=== PATIENT | female | born 1965 | race Caucasian/White ===

== ENCOUNTER 2020-03-05 06:37 | Outpatient (REF) | payer OTHER, SELFPAY | END 2020-03-05 06:38 | disposition home or self-care (01) | LOC: HO.LAB 06:37 | PROVIDERS: Visit Provider Internal Medicine | DX: Z20.828 Contact with and (suspected) exposure to other viral communicable diseases (principal) | CPT/HCPCS: 36415; C9803; U0003 ==

== ENCOUNTER 2023-01-19 13:01 | Outpatient (AMB) | payer OTHER, SELFPAY ==
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
[2023-01-19 13:18] VITALS: BP 114/75; PULSE 80; O2SAT 97; BMI 29.7
== END 2023-01-19 13:52 | disposition home or self-care (01) ==
PROVIDERS: PCP Internal Medicine; Referring Provider Internal Medicine; Visit Provider Nurse Practitioner Family
DX: M47.817 Spondylosis without myelopathy or radiculopathy, lumbosacral region (principal); M51.36 Other intervertebral disc degeneration, lumbar region; M53.3 Sacrococcygeal disorders, not elsewhere classified; M54.2 Cervicalgia; M62.830 Muscle spasm of back
CPT/HCPCS: 99204

== ENCOUNTER → 2023-01-19 13:01 | Outpatient (BNVA) | payer OTHER, SELFPAY | PROVIDERS: PCP Internal Medicine; Referring Provider Internal Medicine; Visit Provider Nurse Practitioner Family | DX: M47.817 Spondylosis without myelopathy or radiculopathy, lumbosacral region (principal); M51.36 Other intervertebral disc degeneration, lumbar region; M53.3 Sacrococcygeal disorders, not elsewhere classified; M54.2 Cervicalgia; M62.830 Muscle spasm of back | CPT/HCPCS: 99202 ==

== ENCOUNTER 2023-02-17 05:16 | Outpatient (REF) | payer OTHER, SELFPAY ==
--- NOTE | ~2023-02-17 | FL_ITS ---
EXAMINATION: XR FLUOROSCOPY WITH IMAGES CLINICAL INFORMATION: Spondylosis without myelopathy or radiculopathy, lumbosacral region. COMPARISON: None available. TECHNIQUE: Fluoroscopy Supervised By: Dr. Daniel Holly. Fluoroscopy Time: 0.5 minutes. Cumulative Dose: 6.87 mGy. DAP: 0.109 Gycm2. Images: 11. FINDINGS: Images demonstrate needle placement and contrast injection adjacent to the bilateral lateral L3, L4 and L5 vertebrae FL/FL guidance in treatment room IMPRESSION: Fluoroscopy guidance for pain management procedure.
== END 2023-02-17 05:17 | disposition home or self-care (01) ==
LOC: CF 05:16
PROVIDERS: Visit Provider Anesthesiology
DX: M47.817 Spondylosis without myelopathy or radiculopathy, lumbosacral region (principal); M51.36 Other intervertebral disc degeneration, lumbar region; M53.3 Sacrococcygeal disorders, not elsewhere classified; M54.2 Cervicalgia; M62.830 Muscle spasm of back
CPT/HCPCS: 64493; 64494; J2795; Q9967

== ENCOUNTER 2023-02-17 08:51 | Outpatient (AMB) | payer OTHER, SELFPAY ==
--- NOTE | 2023-02-17 09:18 | A.OFFVIS_ITS ---
Intake Vital Signs 02/17/23 09:58 02/17/23 09:58 Height 5 ft 7 in 5 ft 7 in Weight 189 lb 6 oz 189 lb 6 oz BMI 29.7 29.7 BP 98/58 L 102/60 Blood Pressure Location Lt brachial Lt brachial Position Sitting Sitting Respiration 14 14 Pulse 65 63 Pulse Source Pulse Oximeter Pulse Oximeter Pulse Oximetry (%) 96 96 Oxygen Delivery Method Room Air Room Air Comment pre-op post-op Intake Visit Reasons: BILAT L3-L4-L5 DX MBB/LOCAL Allergies No Known Allergies Allergy (Verified 02/17/23 10:00) [facility] Medical History (Updated 01/19/23 @ 22:34 by TREVON Beatty) Cervicalgia Other cervical disc degeneration, unspecified cervical region Carpal tunnel syndrome, right upper limb Pain in left finger(s) Muscle spasm of back Low back pain, unspecified Sciatica, right side Other intervertebral disc degeneration, lumbar region Other intervertebral disc degeneration, thoracic region Social History (Updated 01/19/23 @ 13:19 by Ching Angulo) Alcohol intake: current Alcohol intake frequency: holidays/special occasions only Patient Tobacco Use Status: Former Tobacco user Tobacco use type: Cigarette Substance Use Type: Marijuana Physical Exam Vital Signs: Last Vital Signs Pulse 63 02/17/23 09:58 Resp 14 02/17/23 09:58 BP 102/60 02/17/23 09:58 Pulse Ox 96 02/17/23 09:58 Oxygen Delivery Method Room Air 02/17/23 09:58 BMI result Body Mass Index 29.7 Assessment & Plan Assessment & Plan (1) Lumbosacral spondylosis: Code(s): M47.817 - Spondylosis without myelopathy or radiculopathy, lumbosacral region (2) Lumbar degenerative disc disease: Code(s): M51.36 - Other intervertebral disc degeneration, lumbar region (3) Sacroiliac joint pain: Code(s): M53.3 - Sacrococcygeal disorders, not elsewhere classified (4) Cervicalgia: Code(s): M54.2 - Cervicalgia (5) Muscle spasm of back: Code(s): M62.830 - Muscle spasm of back Plan: Diagnostic medial branch block L3,L4 dorsal ramus L5 bilateral.? ? ?Informed consent was explained to the patient. All questions were explained and? answered.? The patient was taken inside the operating room where she was positioned prone on the operating table. Time-out was performed delineating correct site, side, the nature of the procedure, patient's allergy, . All operating room staff was participating in OR time-out procedure. ? ? The lower back was prepped with ChloraPrep and draped with sterile towels.? C- arm was brought over the operating field and sq picture of L4-, L5 vertebra and S1 AREA were delineated on the screen.? Point of interest were delineated as confluence of superior articular process of L4 and L5 vertebra bilaterally with corresponding transverse processes as well as confluence of the sacral alae bilaterally with superior articular process of S1.? The projection of the point of interest to the skin were injected with the small amount of local anesthetic lidocaine 2% 1-1.5 cc.? After that 22 gauge 3.5 inch spinal needle was driven sequentially to the points of interest in tunnel vision fashion. After needles gently contacted the bone at the point of interests the needle was injected with small amount of the contrast.? The injection of the contrast did not demonstrate any intravascular or intrathecal spread of the contrast.? After that injection of the? ropivacaine 0.5%<1cc was performed at each needle location.??after that the needles were removed and Bandaids were applied. ? Upon completion of the injections? needle was? removed and sterile Band-Aids were applied.? The patient tolerated procedure very well. Plan Discussed treatment options for both her axial low back as well as chronic neck pain related to degenerative changes. Medical [place] [facility] [place] [facility] [place] previous cervical and lumbar spine MRIs and xrays. Patient is interested to address her back pain first. For ongoing axial low back pain will plan for diagnostic bilateral L3-L4-L5 medial branch blocks with local and fluoroscopy. If she has significant relief from the diagnostic blocks for her axial low back pain, will consider either therapeutic injections, Sprint PNS or RFA depending on her preference. If no relief, will consider left SIJ diagnostic injection. Expectations, risks and benefits were reviewed. Patient is aware he will be contacted to schedule this procedure. All questions were answered and the patient is in agreement of plan. Follow-up after injections and sooner as needed. Orders: Orders FL guidance in treatment room Today M47.817 - Spondylosis without myelopathy or radiculopathy, lumbosacral region Coding Level of Care Code Procedure Only Diagnoses Lumbosacral spondylosis M47.817 Lumbar degenerative disc disease M51.36 Sacroiliac joint pain M53.3 Cervicalgia M54.2 Muscle spasm of back M62.830
[2023-02-17 09:58] VITALS: BP 102/60; BP 98/58; PULSE 63; PULSE 65; RESP 14; O2SAT 96; BMI 29.7
== END 2023-02-17 09:42 | disposition home or self-care (01) ==
LOC: HO.PMCPRC 08:51
PROVIDERS: PCP Internal Medicine; Visit Provider Anesthesiology
DX: M47.817 Spondylosis without myelopathy or radiculopathy, lumbosacral region (principal)
CPT/HCPCS: 64493; 64494

== ENCOUNTER 2023-02-19 08:29 | Outpatient (AMB) | payer OTHER, SELFPAY ==
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
[2023-02-19 08:35] VITALS: BP 126/83; PULSE 91; O2SAT 98; BMI 28.2
== END 2023-02-19 09:08 | disposition home or self-care (01) ==
PROVIDERS: PCP Internal Medicine; Visit Provider Nurse Practitioner Family
DX: M47.817 Spondylosis without myelopathy or radiculopathy, lumbosacral region (principal); M51.36 Other intervertebral disc degeneration, lumbar region; M53.3 Sacrococcygeal disorders, not elsewhere classified; M62.830 Muscle spasm of back
CPT/HCPCS: 99214

== ENCOUNTER → 2023-02-19 08:29 | Outpatient (BNVA) | payer OTHER, SELFPAY | PROVIDERS: PCP Internal Medicine; Visit Provider Nurse Practitioner Family | DX: M47.817 Spondylosis without myelopathy or radiculopathy, lumbosacral region (principal); M51.36 Other intervertebral disc degeneration, lumbar region; M53.3 Sacrococcygeal disorders, not elsewhere classified; M62.830 Muscle spasm of back | CPT/HCPCS: 99212 ==

== ENCOUNTER 2023-03-17 06:17 | Outpatient (REF) | payer OTHER, SELFPAY ==
--- NOTE | ~2023-03-17 | FL_ITS ---
INDICATION: Intraoperative fluoroscopy. FLUOROSCOPY: Fluoroscopy Time: 40.6 seconds Dose/air kerma: 13.19 mGy FINDINGS: Multiple intraoperative fluoroscopic images are submitted during reported bilateral lumbar injections. Correlation with operative report. Evaluation is limited secondary to fluoroscopic technique. IMPRESSION: Intra-operative fluoroscopic imaging provided by radiology during reported bilateral lumbar injections. Please refer to operative note for further information.
== END 2023-03-17 06:18 | disposition home or self-care (01) ==
LOC: CF 06:17
PROVIDERS: Visit Provider Anesthesiology
DX: M47.817 Spondylosis without myelopathy or radiculopathy, lumbosacral region (principal); M51.36 Other intervertebral disc degeneration, lumbar region; M53.3 Sacrococcygeal disorders, not elsewhere classified; M62.830 Muscle spasm of back
CPT/HCPCS: 64493; 64494; J2795; J3301; Q9967

== ENCOUNTER 2023-03-17 14:41 | Outpatient (AMB) | payer OTHER, SELFPAY ==
--- NOTE | 2023-03-17 16:06 | MHC.OFFVIS ---
Intake Vital Signs 03/17/23 16:16 03/17/23 16:16 Height 5 ft 7 in 5 ft 7 in Weight 180 lb 180 lb BMI 28.2 28.2 BP 116/88 126/78 Blood Pressure Location Lt brachial Lt brachial Position Sitting Sitting Respiration 17 17 Pulse 81 62 Pulse Source Pulse Oximeter Pulse Oximeter Pulse Oximetry (%) 97 99 Oxygen Delivery Method Room Air Room Air Comment pre-op post-op Intake Visit Reasons: BILATERAL THERAPEUTIC L3, L4, DRL5 MBB Allergies No Known Allergies Allergy (Verified 03/17/23 16:17) [facility] Medical History Cervicalgia Other cervical disc degeneration, unspecified cervical region Carpal tunnel syndrome, right upper limb Pain in left finger(s) Muscle spasm of back Low back pain, unspecified Sciatica, right side Other intervertebral disc degeneration, lumbar region Other intervertebral disc degeneration, thoracic region Social History Alcohol intake: current Alcohol intake frequency: holidays/special occasions only Patient Tobacco Use Status: Former Tobacco user Tobacco use type: Cigarette Substance Use Type: Marijuana Physical Exam Vital Signs: Last Vital Signs Pulse 62 03/17/23 16:16 Resp 17 03/17/23 16:16 BP 126/78 03/17/23 16:16 Pulse Ox 99 03/17/23 16:16 Oxygen Delivery Method Room Air 03/17/23 16:16 BMI result Body Mass Index 28.2 Assessment & Plan Assessment & Plan (1) Lumbosacral spondylosis: Code(s): M47.817 - Spondylosis without myelopathy or radiculopathy, lumbosacral region (2) Lumbar degenerative disc disease: Code(s): M51.36 - Other intervertebral disc degeneration, lumbar region (3) Sacroiliac joint pain: Code(s): M53.3 - Sacrococcygeal disorders, not elsewhere classified (4) Muscle spasm of back: Code(s): M62.830 - Muscle spasm of back Plan: Therapeutic medial branch block L3,L4 dorsal ramus L5 bilateral.? ? ?Informed consent was explained to the patient. All questions were explained and? answered.? The patient was taken inside the operating room where she was positioned prone on the operating table. Time-out was performed delineating correct site, side, the nature of the procedure, patient's allergy, . All operating room staff was participating in OR time-out procedure. ? ? The lower back was prepped with ChloraPrep and draped with sterile towels.? C-arm was brought over the operating field and sq picture of L4-, L5 vertebra and S1 AREA were delineated on the screen.? Point of interest were delineated as confluence of superior articular process of L4 and L5 vertebra bilaterally with corresponding transverse processes as well as confluence of the sacral alae bilaterally with superior articular process of S1.? The projection of the point of interest to the skin were injected with the small amount of local anesthetic lidocaine 2% 1-1.5 cc.? After that 22 gauge 3.5 inch spinal needle was driven sequentially to the points of interest in tunnel vision fashion. After needles gently contacted the bone at the point of interests the needle was injected with small amount of the contrast.? The injection of the contrast did not demonstrate any intravascular or intrathecal spread of the contrast.? After that injection of the? ropivacaine 0.5%-1cc mixed with kenalog was performed at each needle location.?total dose of kenalog was 80 mg.?after that the needles were removed and Bandaids were applied. ? Upon completion of the injections? needle was? removed and sterile Band-Aids were applied.? The patient tolerated procedure very well. Plan Patient is status post diagnostic bilateral L3-L4-L5 medial branch blocks with good results. Patient is interested to proceed with therapeutic lumbar MBB injections as next steps before Sprint PNS trial or RFA procedures. Schedule Bilateral Therapeutic L3-L4-L5 MBBs with local and fluoroscopy. Expectations, risks and benefits were reviewed. Patient is aware she will be contacted to schedule this procedure. Continue ice/heat therapy, topical applicatons, HEP, and Tylenol/NSAIDs as needed for pain. All questions were answered and the patient is in agreement of plan. Follow-up after injections and sooner as needed. Orders: Orders FL guidance in treatment room 03/17/23 M47.817 - Spondylosis without myelopathy or radiculopathy, lumbosacral region Coding Level of Care Code Procedure Only Diagnoses Lumbosacral spondylosis M47.817 Lumbar degenerative disc disease M51.36 Sacroiliac joint pain M53.3 Muscle spasm of back M62.830
[2023-03-17 16:16] VITALS: BP 116/88; BP 126/78; PULSE 62; PULSE 81; RESP 17; O2SAT 97; O2SAT 99; BMI 28.2
== END 2023-03-17 16:06 | disposition home or self-care (01) ==
LOC: HO.PMCPRC 14:41
PROVIDERS: PCP Internal Medicine; Visit Provider Anesthesiology
DX: M47.817 Spondylosis without myelopathy or radiculopathy, lumbosacral region (principal); M51.36 Other intervertebral disc degeneration, lumbar region; M53.3 Sacrococcygeal disorders, not elsewhere classified; M62.830 Muscle spasm of back
CPT/HCPCS: 64493; 64494

== ENCOUNTER 2023-05-04 09:41 | Outpatient (REF) | payer OTHER, SELFPAY ==
--- NOTE | ~2023-05-04 | XR_ITS ---
EXAMINATION: XR LUMBOSACRAL SPINE WITH OBLIQUES CLINICAL INFORMATION: Muscle spasm of back. COMPARISON: None available. TECHNIQUE: 5 views of the lumbosacral spine. FINDINGS: IUD in the pelvis. Partially imaged large coarse heterogeneous calcification in the right hemipelvis is characteristic of a fibroid and pelvic ultrasound is recommended for confirmation. Clip overlies the inferior aspect of the right sacroiliac joint. Artificial device with multiple round radiopaque dots overlies the left sacrum, incompletely imaged, and correlation with clinical exam recommended to determine etiology. Degenerative changes in the imaged lower thoracic spine. The bones are diffusely demineralized. Facet arthritis in the lower lumbar spine. Rightward curvature at the thoracolumbar junction. Moderate multilevel lumbar spondylosis with multilevel loss of disc space height. XR/XR lumbar spine 4V min IMPRESSION: 1. Moderate multilevel lumbar spondylosis with multilevel loss of disc space height. 2. Facet arthritis in the lower lumbar spine. 3. Partially imaged large coarse heterogeneous calcification in the right hemipelvis is characteristic of a fibroid and pelvic ultrasound is recommended for confirmation. 4. Artificial device with multiple round radiopaque dots overlies the left sacrum, incompletely imaged, and correlation with clinical exam recommended to determine etiology.
== END 2023-05-04 09:42 | disposition home or self-care (01) ==
LOC: HO.XRAY 09:41
PROVIDERS: PCP Internal Medicine; Visit Provider Nurse Practitioner Family
DX: M62.830 Muscle spasm of back (principal); M51.36 Other intervertebral disc degeneration, lumbar region; M47.817 Spondylosis without myelopathy or radiculopathy, lumbosacral region
CPT/HCPCS: 72110; 99212

== ENCOUNTER 2023-05-04 09:41 | Outpatient (AMB) | payer OTHER, SELFPAY ==
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
[2023-05-04 09:47] VITALS: BP 121/78; PULSE 77; O2SAT 100; BMI 29.3
== END 2023-05-04 10:28 | disposition home or self-care (01) ==
PROVIDERS: PCP Internal Medicine; Visit Provider Nurse Practitioner Family
DX: M62.830 Muscle spasm of back (principal); M51.36 Other intervertebral disc degeneration, lumbar region; M47.817 Spondylosis without myelopathy or radiculopathy, lumbosacral region; M53.3 Sacrococcygeal disorders, not elsewhere classified
CPT/HCPCS: 99214

== ENCOUNTER 2023-06-08 10:42 | Outpatient (REF) | payer OTHER, SELFPAY ==
--- NOTE | ~2023-06-08 | US_ITS ---
EXAMINATION: US PELVIS CLINICAL INFORMATION: Fibroid on x-ray, postmenopausal. COMPARISON: Lumbar spine radiograph 05/05/2023. TECHNIQUE: Ultrasound of the pelvis is performed using both transabdominal and transvaginal transducers along with Doppler. Transvaginal imaging is performed due to inadequate visualization transabdominally. FINDINGS: The uterus is retroverted, heterogeneous and measures 11.1 x 6.1 x 10.5 cm, volume 381.9 mL. Uterine fibroids measure 7.1 x 6.0 x 6.5 cm, 4.3 x 3.6 x 2.8 cm, and 1.6 x 1.9 x 1.9 cm. No significant free fluid. Visualization is severely limited due to uterine positioning, fibroids and heterogeneity. The IUD was placed 10 years ago per patient statement to recharger and is not seen in its entirety and therefore we are unable to confirm if IUD is correctly positioned. Endometrium poorly visualized and cannot be evaluated. Bilateral ovaries were seen best seen on transabdominal ultrasound images and difficult to characterize on transvaginal ultrasound images, limiting evaluation. Right ovary measures 2.9 x 1.7 x 1.9 cm, volume 4.9 mL and left ovary 5.1 x 3.9 x 5.1 cm, volume of 5.3 mL. A 2.0 x 1.5 x 1.8 cm complex right ovarian cyst with diffuse internal echoes. A 3.0 x 3.4 x 3.6 cm complex left ovarian cyst with low-level internal echoes difficult to fully characterize due to limited visualization. US/US pelvic and transvaginal IMPRESSION: 1. Enlarged, heterogeneous uterus with multiple fibroids. 2. IUD was placed 10 years ago per patient statement to recharger and is not seen in its entirety and therefore we are unable to confirm if IUD is correctly positioned. 3. Endometrium poorly visualized and cannot be evaluated. 4. Bilateral complex ovarian cysts are difficult to fully characterize due to limited visualization. Recommend follow-up ultrasound in 6-8 weeks. 5. Gynecologic consultation and correlation with clinical exam recommended to determine further management. This study was presented today June 08, 2023 for interpretation. Stat results provided at this time as requested by referring provider.
== END 2023-06-08 10:43 | disposition home or self-care (01) ==
LOC: HO.US 10:42
PROVIDERS: PCP Internal Medicine; Visit Provider Nurse Practitioner Family
DX: D25.9 Leiomyoma of uterus, unspecified (principal)
CPT/HCPCS: 76830; 76856

== ENCOUNTER 2025-02-07 14:38 | Outpatient (AMB) | payer MEDICAID, SELFPAY ==
--- OUTSIDE RECORDS SUMMARY | 2025-02-02 09:30 | XMS_ITS | Encounter Summary ---
Author Organization [facility] Address [address] [facility] [address] [place] [address] Phone Care Team Providers Care Rug Shampooer Name Role Phone Bobo Poe MD Primary Care Provider + Reason for Visit * Reason Comments right foot pain Middle toe pain for over 2 months. Has hammer toes starting on several toes. Middle toe is from the others. * Consultation (Routine) - Authorized Specialty Diagnoses / Procedures Referred By Contact Referred To Contact Orthopedic Surgery / Orthopedics Diagnoses Toe pain, right Right foot middle toe pain, NO XR, No TX Procedures NEW PATIENT ORTHO W/ X-RAY Savanna Suarez MD [address] [place] [address] [address] [place] [address] Phone: tel: fax: Travis Angelo MD [address] [place] [address] Orthopedics & Sports Medicine, [facility] [place] [address] Phone: tel: fax: [email or web address] Referral ID Status Reason Start Date Expiration Date V isits Requested Visits Authorized [id number] Authorized 01/30/2025 01/30/2026 6 6 Encounter Details Date Type Department Care Team ([facility] st Contact Info) Description 02/02/2025 9:30 AM EST Office Visit [facility] Orthopedics & Sports Medicine [address] [place] [phone] Travis Angelo MD [address] [place] [address] [facility] [place] [address] [email or web address] Right foot pain (Primary Dx) Social History Tobacco Use Types Packs/Day Years Used Date Smoking Tobacco: Former Cigarettes 0.3 10 1 988 - 1997 Smokeless Tobacco: Never Alcohol Use Standard Drinks/Week Comments Yes 1 (1 standard drink = 0.6 oz pur e alcohol) once a week Education Answer Date Recorded Are you interested in more education? Not on sumit e 06/26/2022 Are you concerned about learning? Not on file 06/26/2022 No 06/26/2022 No 06/26/2022 Digital Access Answer Date Recorded No 07/28/2022 No 07/28/2022 Reliable internet access at home? Not on file 07/28/2022 Device with a working camera? Not on file Comments No Sex and Gender Information Value Date Recorded Sex Assigned at Female 11/15/2018 6:23 PM EDT Legal Sex Female 8:01 PM EST Gender Identity Female 11/15/2018 6:23 PM EDT Sexual Orientation Not on file documented as of this encounter Last Filed Vital Signs Vital Sign Reading Time Taken Comments Blood Pressure - - Pulse - - Temperature - - Respiratory Rate - - Oxygen Saturation - - Inhaled Oxygen Concentration - - Weight 74.8 kg (165 lb) 02/02/2025 9:52 AM EST Height 170.2 cm (5' 7 ) 02/02/2025 9:52 AM EST Body Mass Index 25.84 02/02/2025 9:52 AM EST documented in this encounter Progress Notes * Travis Angelo MD - 02/02/2025 9:30 AM EST [facility] Date of Visit: 02/02/2025 Reason for Appointment: Right middle toe pain HPI: Rosa Aldridge is a 59 y.o. female who presents today for orthopedic surgical evaluation ofthe above. Ms. Aldridge is known to me from prior care, last having seen me over 3 years ago. 3-1/2years ago I performed a forefoot reconstruction with scarf and Luis osteotomies, and repair of a chronically dislocated second MTP joint including a Milvia osteotomy and PIP fusion. She did well but about a year ago first noticed some swelling and discomfort in the central forefoot and the dorsal aspect of her chronically clawed third toe chafed on the inside of shoes. Since she was last seen, she thinks she may have had her forefoot stepped on by one of her draft horses. Medical and Surgical History: Reviewed and verified, medications confirmed. Social History: Social History Socioeconomic History Marital status: /Civil Union Spouse name: Not on file Number of children: Not on file Years of education: Not on file Highest education level: Not on file Occupational History Not on file Tobacco Use Smoking status: Former Current packs/day: 0.00 Average packs/day: 0.3 packs/day for 10.0 years (2.5 ttl pk-yrs) Types: Cigarettes Start date: 1987 Quit date: 1997 Years since quittin.9 Smokeless tobacco: Never Vaping Use Vaping status: never used Substance and Sexual Activity Alcohol use: Yes Alcohol/week: 1.0 standard drink of alcohol Types: 1 Standard drinks or equivalent per week Comment: once a week Drug use: Yes Frequency: 7.0 times per week Types: Marijuana Sexual activity: Not on file Other Topics Concern Not on file Social History Narrative Not on file Denies current nicotine use Family History: Family History Problem Relation Age of Onset Heart disease Father Diabetes Father No Known Problems Sister No Known Problems Brother No Known Problems Maternal Aunt No Known Problems Maternal Uncle No Known Problems Paternal Aunt No Known Problems Paternal Uncle No Known Problems Maternal Grandmother No Known Problems Maternal Grandfather No Known Problems Paternal Grandmother No Known Problems Paternal Grandfather Infl. arthritis Unspecified Cancer Neg Hx Clotting disorder Neg Hx Collagen disease Neg Hx Depression Neg Hx Dislocations Neg Hx Gout Neg Hx Osteoporosis Neg Hx Scoliosis Neg Hx ROS: 15 point review of systems reviewed Exam: The patient is a generally well-appearing female, pleasant, alert, oriented, comfortable while seated. Body mass index is 25.84 kg/m??. Standing evaluation reveals mild pes planus. There is mild clinical hallux valgus which is passively correctable and passive motion is painless. There is some tenderness at the base of the second toewhich is rectus and the 3rd through 5th toes are notably abducted and clawed, the third of which isstiffer than the 4th or 5th. Mild erythema over the dorsal third PIP joint, minimal tenderness. Neurological: Light touch sensation grossly intact. Imaging: X-rays done today for pain/deformity/surgical surveillance, images permanently stored and retrievable. Images independently reviewed and interpreted by me. Right foot weightbearing 3 views. There is mildly recurrent hallux valgus, osteotomy is nicely healed. The second Milvia osteotomy has healed as well, but the second MTP joint has recurrent dislocation laterally with a well-corticated bone fragment representing the medial proximal condyle of P1. The third MTP joint is in about 45 degrees of valgus, similar to x-rays from 2- 1/2 years ago. Asssessment: 1. 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 Third claw toe impingement with valgus lesser toe sweep Plan: 1. The nature of the working diagnosis was comprehensively reviewed with visual reinforcementand positive teach back, and treatment options were discussed. The second ray is a much bigger challenge than the third, where I would be inclined to leave the MTP joint valgus alignment alone and address her dorsal impinging claw toe which could be done with an intraosseous implant rather than toepinning, as her MTP joint is not dislocated. We discussed what this would involve as well as the expected postoperative course, and much less debilitating than her nonweightbearing status after her prior reconstruction. She will take this under advisement. 2. Correcting the second ray would be a big challenge. She may need additional metatarsal shortening, further open reduction, and maybe even another trans articular pinning. Periarticular soft tissuereconstruction options would be limited, but she may have a viable FDL tendon for Girdlestone-Mary type transfer. She did not express interest in this project. 3. For now the patient prefers to observe, wear accommodative, supportive shoes. Happy to see her again for progressive discomfort. Questions were answered to the patient's satisfaction today. The patient verbalizes understanding of our discussion and agreement with the plan as discussed. Travis Angelo MD This note was created with voice recognition software, which may have resulted in uncorrected errors. Note to patient or authorized goodwill representative: The 21st Century Cures Act makes medical notes such as this accessible by patients. However, please be advised that as an internally-facing medical document it is not intended for direct access. It is intended primarily as [id number] communication, and as a reference to your practitioner of a prior encounter. It is written in medical language and may contain abbreviations or verbiage that are unfamiliar. It may appear blunt or direct. This is because medical documents are intended to carry relevant information, facts as evidence, and the clinical impressions of the practitioner as of the time of writing. documented in this encounter Plan of Treatment Not on file documented as of this encounter Results * XR FOOT 3 OR MORE VIEWS (RIGHT) (02/02/2025 10:02 AM EST) Narrative SYSTEMGENERATED, DOCUMENTATION - 02/02/2025 10:02 AM EST This image report has been auto-finalized and has not been read by a Radiologist. Interpretation has been included in the provider encounter note for this date of service. Travis Angelo MD IMG XR LOWER EXTREMITY Final Result documented in this encounter Visit Diagnoses Diagnosis Right foot pain- Primary Pain in soft tissues of limb Right foot pain Pain in soft tissues of limb documented in this encounter Care Teams Rug Shampooer Relationship Specialty Start Date End Date Bobo Poe MD [address] [facility] 1 [place] [phone] PCP - General Internal Medicine 08/13/17 documented as of this encounter Additional Source Comments The information contained in this document represents components of the legal health record. It is not the complete legal health record.[facility]
--- OUTSIDE RECORDS SUMMARY | 2025-02-02 09:54 | XMS_ITS | Encounter Summary ---
Author Organization [facility] Address [address] [facility] [address] [place] [phone] Phone Care Team Providers Care Set Off Blocker Name Role Phone Bobo Poe MD Primary Care Provider + Encounter Details Date Type Department Care Team (Latest Contact Info) Description 02/02/2025 9:54 AM EST - 02/02/2025 11:59 PM [facility] Hospital Encounter [address] [address] Travis Angelo MD [address] [place] [address] Orthopedics & Sports Medicine, [place] [address] [email or web address] [email or web address] Disposition: Home or Self Care Social History Tobacco Use Types Packs/Day Years Used Date Smoking Tobacco: Former Cigarettes 0.3 10 1 988 - 1998 Smokeless Tobacco: Never Alcohol Use Standard Drinks/Week [...] on file documented as of this encounter Medications at Time of Discharge celecoxib (CELEBREX) 100 MG capsule Take 100 mg by mouth 2 (two) times a day. cetirizine (ZYRTEC) 10 MG tablet Take 1 tablet by mouth every morning. 04/28/2023 EPINEPHrine 0.3 mg/0.3 mL auto-injector Inject 0.3 mg into the muscle. 10/06/2023 documented as of this encounter Plan of Treatment Not on file documented as of this encounter Procedures Procedure Name Priority Date/Time Associated Diagnosis Comments XR FOOT 3 OR MORE VIEWS (RIGHT) Routine 02/02/2025 10:02 AM EST Right foot pain documented in this encounter Results * XR FOOT 3 [...] this encounter Visit Diagnoses Diagnosis Right foot pain Pain in soft tissues of limb documented in this encounter Care Teams Set Off Blocker Relationship Specialty Start Date End Date Bobo Poe MD [address] [place] [phone] PCP - General Internal Medicine 08/13/17 documented as of this encounter Additional Source Comments The information contained in this document represents components of the legal health record. It is not the complete legal health record.[facility]
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
--- NOTE | 2025-02-07 14:59 | MHC.OFFVIS ---
Vital Signs 02/07/25 15:04 Height 5 ft 7 in Weight 166 lb 6 oz BMI 26.1 BP 112/74 Blood Pressure Location Rt brachial Position Sitting Pulse 85 Pulse Source Pulse Oximeter Pulse Oximetry (%) 98 Oxygen Delivery Method Room Air Intake Visit Reasons: Back pain Intake Note: Pain today 09/08 Business Information Manager Required: No Accompanied by: Self / Same As Patient Allergies No Known Allergies Allergy (Verified 02/07/25 15:05) HPI Comments Details: The patient is a 59 year old female presenting for a follow-up visit for chronic low back pain. She has previously undergone two bilateral L3-4-5 medial branch blocks, the last one being in March 2023, which provided significant pain relief. Her primary complaint has shifted to right hip pain that began in the last couple of months and is now more significant than her back pain. The pain is located on the side of the hip with radiation to the groin and is exacerbated by getting in and out of a car or bed and sitting for prolonged periods. She is unable to sleep on her right side due to the pain, which can be severe enough to make her cry. She denies any preceding trauma. The patient reports a complex surgical history, including a right hand reconstruction and carpal tunnel surgery last year, and a right knee replacement in 2017. She has experienced issues with hardware failure, noting her right foot surgery from 2021 and a shoulder surgery from 2007 have both come undone, with her body reportedly pushing screws out. She recently received a cortisone injection in her right shoulder for arthritis, which provided significant relief. Other medical history includes large uterine fibroids which are asymptomatic and are being monitored, a previous diagnosis of scoliosis, and a recent diagnosis of fibromyalgia from another provider. She has also had skin cancer removed from her face twice. The patient has an IUD in place. She denies smoking or drinking alcohol but uses marijuana. She reports associated balance problems. Pain Description - Onset: The patient reports her right hip pain started within the last couple of months. - Location: The pain is primarily in the right hip, located on the side, and radiates to the groin. - Character: The pain can be severe enough to cause crying and is sometimes a sudden, sharp pain like a charley horse with certain movements. - Exacerbating Factors: Pain is worsened by getting in and out of a car or bed, sitting for too long (especially in a hard chair), and lying on the right side. - Relieving Factors: Stretching upon waking in the morning provides some relief, as does finding a comfortable sitting position. - Associated Symptoms: The patient reports feeling stiff in the morning, like a [id number], before she stretches. - Interference with Function: The pain interferes with sleep, sitting tolerance, and general mobility. Pain Management - Affect: The patient expresses distress, stating she is a mess and that the hip pain is sometimes severe enough to make her cry. - Analgesia: The patient notes that prior medial branch blocks provided significant relief for her back pain and a recent cortisone shot in her shoulder helped 700%. - Adverse Effects: No adverse effects from medications or procedures were discussed. - Activities of Daily Living: The pain significantly impacts her daily life, interfering with sleep, sitting, and mobility such as getting out of a bed or car. - Aberrant Drug-Related Behaviors: The patient denies smoking or alcohol use but reports using marijuana. [facility] Medical History Cervicalgia Other cervical disc degeneration, unspecified cervical region Carpal tunnel syndrome, right upper limb Pain in left finger(s) Muscle spasm of back Low back pain, unspecified Sciatica, right side Other intervertebral disc degeneration, lumbar region Other intervertebral disc degeneration, thoracic region Social History Alcohol intake: current Alcohol intake frequency: holidays/special occasions only Patient Tobacco Use Status: Former Tobacco user Tobacco use type: Cigarette Substance Use Type: Marijuana Review of Systems Narrative - Musculoskeletal: Reports chronic low back pain, new right lateral hip pain with radiation to the groin, and right shoulder pain with arthritis. - She reports morning stiffness and generalized painful pressure points. - Neurological: Reports loss of balance. - Gynecological: Reports history of uterine fibroids.. Const All systems reviewed & are unremarkable except as noted in HPI and below Physical Exam Vital Signs: Last Vital Signs Pulse 85 02/07/25 15:04 BP 112/74 02/07/25 15:04 Pulse Ox 98 02/07/25 15:04 Oxygen Delivery Method Room Air 02/07/25 15:04 BMI result Body Mass Index 26.1 General: Appears afebrile. Alert and oriented. Mood and affect appropriate. Follows and participates in conversation appropriately. Respiratory effort is unlabored. No cough. Able to transition from sit to stand unassisted. Ambulates with bilaterally normal heel strike and toe off. General: Yes no CVA tenderness Back/Spine/Pelvis Other: Moderate tenderness to palpation over the right greater trochanteric area. Internal and external rotation of the right hip is painful. GLEN test is provocative for pain in the right groin and produced an audible pop. Provocative testing for the sacroiliac joint was also painful with Prosper's, Stinchfield, and Pelvic Compression. Leg lengths are equal. Back: no CVA tenderness Cervical Spine: cervical muscular tenderness and No Cervical spine tenderness Thoracic/Lumbar Spine: thoracic and lumbar spine normal to inspection, No Thoracic/lumbar spine scar(s), Lasegue's sign negative, straight leg raise negative bilaterally, pain with thoraco-lumbar ROM, paraspinal muscle tenderness on the right, thoraco-lumbar ROM limited, thoraco-lumbar spasm on the right greater than left, No thoracic spinal tenderness and lumbar spinal tenderness (L4-S1) Pelvis: buttock tenderness on the right Sacroiliac joints: bilaterally (+Prosper's, SI distraction, Pelvic compression) tender to palpation Results Reviewed Results Reviewed: XR LUMBOSACRAL SPINE WITH OBLIQUES 05/04/23 CLINICAL INFORMATION: Muscle spasm of back. COMPARISON: None available. TECHNIQUE: 5 views of the lumbosacral spine. FINDINGS: IUD in the pelvis. Partially imaged large coarse heterogeneous calcification in the right hemipelvis is characteristic of a fibroid and pelvic ultrasound is recommended for confirmation. Clip overlies the inferior aspect of the right sacroiliac joint. Artificial device with multiple round radiopaque dots overlies the left sacrum, incompletely imaged, and correlation with clinical exam recommended to determine etiology. Degenerative changes in the imaged lower thoracic spine. The bones are diffusely demineralized. Facet arthritis in the lower lumbar spine. Rightward curvature at the thoracolumbar junction. Moderate multilevel lumbar spondylosis with multilevel loss of disc space height. IMPRESSION: 1. Moderate multilevel lumbar spondylosis with multilevel loss of disc space height. 2. Facet arthritis in the lower lumbar spine. 3. Partially imaged large coarse heterogeneous calcification in the right hemipelvis is characteristic of a fibroid and pelvic ultrasound is recommended for confirmation. 4. Artificial device with multiple round radiopaque dots overlies the left sacrum, incompletely imaged, and correlation with clinical exam recommended to determine etiology. XR HIP, RIGHT 02/07/25 CLINICAL INFORMATION: M53.3 - Sacrococcygeal disorders, not elsewhere classified COMPARISON: None available. TECHNIQUE: Two views of the right hip. Pelvis 1 view FINDINGS: Right hip: No acute fracture or dislocation. Alignment is anatomic. Hip joint space is maintained. No suspicious bony lesion. Pelvis: Left hip joint space is maintained. Symphysis pubis intact. There is bowel loops projected over the pelvis, containing prominent stool and increased density suggestive of oral contrast material within the bowel loops. This is obscuring the underlying pelvis, sacrum and coccyx. There is a prominent round heterogeneous focus projected over the lower pelvis, probably reflecting a ball of stool. IUD and surgical clip projected projected of the pelvis. IMPRESSION: Right hip: No acute findings. Bowel loops containing stool and barium within the bowel loops obscuring the pelvis, limiting evaluation. Assessment & Plan Assessment & Plan (1) Sacroiliac joint pain: Code(s): M53.3 - Sacrococcygeal disorders, not elsewhere classified Category: Medical (2) Right hip pain: Code(s): M25.551 - Pain in right hip Category: Medical (3) Lumbosacral spondylosis: Code(s): M47.817 - Spondylosis without myelopathy or radiculopathy, lumbosacral region Category: Medical (4) Lumbar degenerative disc disease: Code(s): M51.36 - Other intervertebral disc degeneration, lumbar region Category: Medical (5) Lumbar radiculopathy: Code(s): M54.16 - Radiculopathy, lumbar region Category: Medical (6) Greater trochanteric bursitis of right hip: Code(s): M70.61 - Trochanteric bursitis, right hip Category: Medical Plan To further evaluate the patient's right hip pain, a pelvic and hip x-ray will be ordered. Depending on the results of the x-ray, the next step will be to consider a fluroscopy guided right hip injection or a right therapeutic trochanteric bursa injection. Additionally, an MRI of the lumbar spine will be ordered to assess for any instability, dislocation, or stenosis that could be contributing to her symptoms. Patient completed xray imaging post this visit as noted above. We will plan for a right therapeutic GTB steroid injection with local and fluoroscopy. Expectations, risks and benefits were reviewed. Patient is aware she will be contacted to schedule this procedure. The patient is also advised to follow up with her traveling storekeeper regarding her uterine fibroids. All questions and concerns have been answered and patient agreed with the treatment plan. Follow up for injection/MRI results and sooner as needed. Patient was informed and verbally consented to the use of an ambient scribe for clinic note documentation during this visit. Orders: Orders XR hip RT w PEL1V 02/07/25 M25.551 - Pain in right hip, M53.3 - Sacrococcygeal disorders, not elsewhere classified MR lumbar spine wo con 02/07/25 M47.817 - Spondylosis without myelopathy or radiculopathy, lumbosacral region, M51.36 - Other intervertebral disc degeneration, lumbar region, M54.16 - Radiculopathy, lumbar region Coding Level of Care Code Est Pt Level 4 (35806) Add On Problem Visit Only Diagnoses Sacroiliac joint pain M53.3 Right hip pain M25.551 Lumbosacral spondylosis M47.817 Lumbar degenerative disc disease M51.36 Lumbar radiculopathy M54.16 Greater trochanteric bursitis of right hip M70.61
[2025-02-07 15:04] VITALS: BP 112/74; PULSE 85; O2SAT 98; BMI 26.1
--- OUTSIDE RECORDS SUMMARY | 2025-02-07 20:31 | XMS_ITS | Encounter Summary ---
Author Organization [facility] Address [address] [facility] [address] [place] [address] Phone Care Team Providers Care Concrete Rubber Name Role Phone Bobo Poe MD Primary Care Provider + Encounter Details Date Type Department Care Team ([facility] st Contact Info) Description 06/10/2023 Procedure Pass OR Admitting Dept - Virtual Department [address] [place] [address] Social History Tobacco Use Types Packs/Day Years [...] on file documented as of this encounter Plan of Treatment Not on file documented as of this encounter Visit Diagnoses Not on filedocumented in this encounter Care Teams Concrete Rubber Relationship Specialty Start Date End Date Bobo Poe MD [address] [place] [address] 1 [place] [address] PCP - General Internal Medicine 08/13/17 documented as of this encounter Additional Source Comments The information contained in this document represents components of the legal health record. It is not the complete legal health record.[facility]
--- OUTSIDE RECORDS SUMMARY | 2025-02-07 20:31 | XMS_ITS | Encounter Summary ---
Author Organization [facility] Address [address] [facility] [address] [place] [address] Phone Care Team Providers Care Rn Cardiac Cath Name Role Phone Bobo Poe MD Primary Care Provider + Encounter Details Date Type Department Care Team ([facility] st Contact Info) Description 01/22/2024 Procedure Pass OR Admitting Dept - Virtual Department [address] [place] [address] Social History Tobacco Use Types Packs/Day Years [...] on filedocumented in this encounter Care Teams Rn Cardiac Cath Relationship Specialty Start Date End Date Bobo Poe MD [address] [place] [address] 1 [place] [address] PCP - General Internal Medicine 08/13/17 documented as of this encounter Additional Source Comments The information contained in this document represents components of the legal health record. It is not the complete legal health record.[facility]
--- OUTSIDE RECORDS SUMMARY | 2025-02-07 20:31 | XMS_ITS | Clinical Summary ---
Author Organization [facility] Address [address] [facility] [address] [place] [address] Phone Care Team Providers Care Ophthalmic Technician Name Role Phone Bobo Poe MD Primary Care Provider + Allergies Active Allergy Reactions Criticality Noted Date Comments Venom-Honey Bee Anaphylaxis High 01/17/2020 Venom-Wasp Anaphylaxis High 10/06/2023 Wasp Venom Anaphylaxis High 01/17/2020 Medications cetirizine (ZYRTEC) 10 MG tablet Take 1 tablet by mouth every morning. 04/28/2023 Active EPINEPHrine 0.3 mg/0.3 mL auto-injector Inject 0.3 mg into the muscle. 10/06/2023 Active celecoxib (CELEBREX) 100 MG capsule Take 100 mg by mouth 2 (two) times a day. Active Hospital, Clinic, or Other Facility Administered Medication Ordered Dose Route Frequency Start Date End Date Status triamcinolone acetonide (KENALOG-40) 40 mg/mL injection 80 mgIndications:Rotato r cuff arthropathy of right shoulder 80 mg IM Once 01/30/2025 04/30/2025 Active BUPivacaine (PF) (MARCAINE) 0.25% injection 2 mLIndications:Rotato r cuff arthropathy of right shoulder 2 mL See Adm Inst Once 01/30/2025 04/30/2025 Activ e lidocaine (XYLOCAINE) 1% injection 2 mLIndications:Rotato r cuff arthropathy of right shoulder 2 mL Infil Once 01/30/2025 04/30/2025 Active Active Problems Problem Noted Date Diagnosed Date Arthritis of carpometacarpal (CMC) joint of righ t thumb 05/06/2023 Right carpal tunnel syndrome 05/06/2023 Aftercare following right knee joint replacement surgery 02/03/2018 Primary osteoarthritis of right knee 11/10/2017 Right knee pain 10/08/2017 Acquired hallux valgus of right foot Acquired hallux interphalangeus of right foot Dislocation of MTP joint of left lesser toe(s), init Hammertoe of right foot Encounters Date Type Department Care Team Description 02/07/2025 9:00 AM EST Office Visit [facility] [address] [place] [address] [place] [address] Duncan Curran DO Traumatic arthritis of shoulder region (Primary Dx); Presence of retained hardware; Instability of shoulder joint, right; Fibromyalgia 02/02/2025 9:54 AM EST - 02/02/2025 11:59 PM EST Hospital Encounter [address] [address] Travis Angelo MD Discharge Disposition: Home or Self Care 02/02/2025 9:30 AM EST Office Visit [facility] [address] [place] [id number] Travis Angelo MD Right foot pain (Primary Dx) 01/30/2025 8:45 AM EST - 01/30/2025 11:59 PM EST Hospital Encounter [address] [address] Akila Lyons MD Discharge Disposition: Home or Self Care 01/30/2025 8:45 AM EST Office Visit [facility] [address] [place] [address] Akila Lyons MD Rotator cuff arthropathy of right shoulder (Primary Dx); Pain 11/29/2024 Orders Only [facility] [address] [place] [address] Hans Villela MA Right foot pain (Primary Dx) from Last 3 Months Family History Medical History Relation Comments No Known Problems Brother Diabetes Father Heart disease Father No Known Problems Maternal Aunt No Known Problems Maternal Grandfather No Known Problems Maternal Grandmother No Known Problems Maternal Uncle No Known Problems Paternal Aunt No Known Problems Paternal Grandfather No Known Problems Paternal Grandmother No Known Problems Paternal Uncle No Known Problems Sister Infl. arthritis Unspecified Cancer Neg Hx Clotting disorder Neg Hx Collagen disease Neg Hx Depression Neg Hx Dislocations Neg Hx Gout Neg Hx Osteoporosis Neg Hx Scoliosis Neg Hx Relation Status Comments Brother Father Maternal Aunt Maternal Grandfather Maternal Grandmother Maternal Uncle Mother Paternal Aunt Paternal Grandfather Paternal Grandmother Paternal Uncle Sister Unspecified Social History Tobacco Use Types Packs/Day Years Used Date Smoking Tobacco: Former Cigarettes 0.3 10 1 988 - 1997 Smokeless Tobacco: Never Tobacco Cessation:Counseling Given: Not Answered Alcohol Use Standard Drinks/Week Comments Yes 1 [...] PM EDT Sexual Orientation Not on file Last Filed Vital Signs Vital Sign Reading Time Taken Comments Blood Pressure 122/82 01/22/2024 10:49 AM EST Pulse 60 01/22/2024 10:49 AM EST Temperature 36.7 C (98.1 F) 05/06/2023 2:30 PM EST Respiratory Rate 12 05/06/2023 2:55 PM EST Oxygen Saturation 98% 01/22/2024 10:49 AM EST Inhaled Oxygen Concentration - - Weight 74.8 kg (165 lb) 02/02/2025 9:52 AM EST Height 170.2 cm (5' 7 ) 02/02/2025 9:52 AM EST Body Mass Index 25.84 02/02/2025 9:52 AM EST Plan of Treatment Health Maintenance Due Date Last Done Comments LIPID PANEL 1966 DEPRESSION SCREENING 1978 HEPATITIS C SCREENING 1984 HIV ONE-TIME SCREENING (18-6 5 YEARS) 1984 MAMMOGRAM 2006 COLOGUARD 06/26/2011 COLONOSCOPY 06/26/2011 COLORECTAL CANCER SCREENING 06/26/2011 FIT TEST 06/26/2011 FOBT 06/26/2011 SIGMOIDOSCOPY 06/26/2011 VIRTUAL COLONOSCOPY 06/26/2011 PNEUMOCOCCAL VACCINES (50+ y ears) (1 of 1 - PCV) 2016 ZOSTER VACCINES (1 of 2) 2016 PAP SMEAR 12/27/2022 12/28/2019 SCREENING FOR DIABETES 04/09/2024 04/09/2021 INFLUENZA VACCINE (#1) 2024 COVID-19 VACCINE ( - 2024-2 6 season) 2024 Adult Td,Tdap Booster 10/29/2030 10/29/2020 RSV VACCINE (1 - 1-dose 75+ series) 2041 SMOKING STATUS SCREENING (On ce After 26 Yrs) Completed 02/07/2025 HEPATITIS A VACCINES Aged Out No long er eligible based on patient's age to complete this topic HIB VACCINES Aged Out No longer eligi ble based on patient's age to complete this topic MENINGOCOCCAL VACCINES (ACWY) Aged Out No longer eligible based on patient's age to complete this topic MENINGOCOCCAL VACCINES (B) Aged Out N o longer eligible based on patient's age to complete this topic Medical Devices Implanted Type Area Stave Cutting Supervisor Device Identifier Shelf Expiration Date Model / Serial / Lot Implant Knee [id number] Tibial Bearing Insert Vanguard Posterior Ea Knee 05 - [id number] Implanted:Qty: 1 on 02/03/2018 by Santos Ta MD at [facility] [employer] Right: Knee [employer] 11/20/2022 [id number] / / [id number] Cement Bone Biomet Standard R 1x40 - [id number] Implanted:Qty: 1 on 02/03/2018 by Santos Ta MD at [facility] Right: Knee TAPAN / DIV OF [employer]ST[employer] 03/01/2022 [id number] / / [id number] Plate Bone 71mm Knee Tibial Tray I Beam Locking Bar [place] Chrome Maxim Ea Knee 03a - [id number] Implanted:Qty: 1 on 02/03/2018 by Santos Ta MD at [facility] Right: Knee [employer] 12/18/2027 [id number] / / [id number] Knee Femoral Compps Open Intlk Rt 70 1ea Knee 02 - [id number] Implanted:Qty: 1 on 02/03/2018 by Santos Ta MD at [facility] Right: Knee [employer] 11/13/2027 [id number] / / [id number] Knee Series A Asymmetric Pat 34x8.5 - [id number] Implanted:Qty: 1 on 02/03/2018 by Santos Ta MD at [facility] Right: Knee TAPAN / DIV OF [employer] 08/25/2022 [id number] / / [id number] Screw Monster Bite Break Off /2 Threaded 2mm 13mm - [id number] Implanted:Qty: 2 on 04/24/2021 by Travis Angelo MD at [facility] Right: Toe [employer] [id number] / / K-Wire Bone Joana 6in 0.062in Ss Smooth [place] Duel End Pk/6ea - [id number] Implanted:Qty: 1 on 04/24/2021 by Travis Angelo MD at [facility] Right: Toe [employer] [id number] / / Description:Implanted in sec ond toe Screw Mini Monster Cannulated Short Threaded 2.5x14mm Headless - [id number] Implanted:Qty: 1 on 04/24/2021 by Travis Angelo MD at [facility] Right: Toe [employer] [id number] / / Screw Mini Monster Cannulated Short Threaded 2.5x12mm Headless - [id number] Implanted:Qty: 1 on 04/24/2021 by Travis Angelo MD at [facility] Right: Toe [employer] [id number] / / Screw Mini Monster Cannulated Short Threaded Headed 2.5x28mm - [id number] Implanted:Qty: 1 on 04/24/2021 by Travis Angelo MD at [facility] Right: Toe [employer] [id number] / / Screw Bone 2.5x22mm Cannulated Mini-Monster Short Thread Headed - [id number] Implanted:Qty: 1 on 04/24/2021 by Travis Angelo MD at [facility] Right: Toe [employer] [id number] / / [place] Suture Size 0 Needleos2 [id number] Arthroscopy Quick Double Arm Mini - [id number] Implanted:Qty: 1 on 05/06/2023 by Radha Montes MD at [facility] Right: Thumb [employer] 10/30/2026 [id number] / / [id number] Procedures Procedure Name Priority Date/Time Associated Diagnosis Comments XR FOOT 3 OR MORE VIEWS (RIGHT) Routine 02/02/2025 10:02 AM EST Right foot pain XR SHOULDER 2 VIEWS (RIGHT) Routine 01/30/2025 8:52 AM EST Pain XR FOOT (RIGHT) Routine 11/29/2024 10:18 AM EDT Right foot pain from Last 3 Months Results * XR FOOT 3 OR MORE VIEWS (RIGHT) (02/02/2025 10:02 AM EST) Narrative SYSTEMGENERATED, DOCUMENTATION - 02/02/2025 10:02 AM EST This image report has been auto-finalized and has not been read by a Radiologist. Interpretation has been included in the provider encounter note for this date of service. Travis Angelo MD IMG XR LOWER EXTREMITY Final Result * XR SHOULDER 2 VIEWS (RIGHT) (01/30/2025 8:52 AM EST) Narrative SYSTEMGENERATED, DOCUMENTATION - 01/30/2025 8:52 AM EST This image report has been auto-finalized and has not been read by a Radiologist. Interpretation has been included in the provider encounter note for this date of service. Akila Lyons MD IMG XR UPPER EXTREMITY Fi nal Result from Last 3 Months Insurance Advance Directives For more information, please contact: [phone] (9AM - 5PM [facility], Thursday-Thursday) * Full Code (Presumed) (Latest Code Status on File) Date Activated Date Inactivated Comments 02/03/2018 4:08 PM 02/05/2018 2:20 PM * Full Code (Presumed) Date Activated Date Inactivated Comments 02/03/2018 7:33 AM 02/03/2018 4:08 PM Care Teams Ophthalmic Technician Relationship Specialty Start Date End Date Bobo Poe MD [address] [facility] [address] [place] [address] PCP - General Internal Medicine 08/13/17 Additional Source Comments The information contained in this document represents components of the legal health record. It is not the complete legal health record.[facility]
--- OUTSIDE RECORDS SUMMARY | 2025-02-07 20:31 | XMS_ITS | Encounter Summary ---
Author Organization [facility] Address [address] [facility] [address] [place] [address] Phone Care Team Providers Care Crocodile Farmer Name Role Phone Bobo Poe MD Primary Care Provider + Encounter Details Date Type Department Care Team (Late st Contact Info) Description 02/03/2018 Procedure Pass OR Admitting Dept - Virtual Department [address] [place] [address] Social History Tobacco Use Types Packs/Day Years Used Date Smoking Tobacco: Former Cigarettes Q uit: 1997 Smokeless Tobacco: Never Alcohol Use Standard Drinks/Week Comments Yes 0 (1 standard drink = 0.6 oz pur e alcohol) once a week Comments Unknown Sex and Gender Information Value Date Recorded Sex Assigned at Female 11/15/2018 6:23 PM EDT Legal Sex Female 8:01 PM EST Gender Identity Female 11/15/2018 6:23 PM EDT Sexual Orientation Not on file documented as of this encounter Plan of Treatment Not on file documented as of this encounter Visit Diagnoses Not on filedocumented in this encounter Additional Health Concerns Infection Onset Date Last Indicated Resolved Time COVID-19 03/08/2021 03/08/2021 03/29/2021 1:24 AM EST documented as of this encounter Care Teams Crocodile Farmer Relationship Specialty Start Date End Date Bobo Poe MD [address] [place] [phone] PCP - General Internal Medicine 08/13/17 documented as of this encounter Additional Source Comments The information contained in this document represents components of the legal health record. It is not the complete legal health record.[facility]
--- OUTSIDE RECORDS SUMMARY | 2025-02-07 20:31 | XMS_ITS | Encounter Summary ---
Author Organization [facility] Address [address] [facility] [address] [place] [address] Phone Care Team Providers Care Auditing Coder Name Role Phone Bobo Poe MD Primary Care Provider + Encounter Details Date Type Department Care Team (Late st Contact Info) Description 05/06/2023 Procedure Pass OR Admitting Dept - Virtual Department [address] [place] [address] Social History Tobacco Use Types Packs/Day Years [...] on filedocumented in this encounter Care Teams Auditing Coder Relationship Specialty Start Date End Date Bobo Poe MD [address] [place] [address] 1 [place] [phone] PCP - General Internal Medicine 08/13/17 documented as of this encounter Additional Source Comments The information contained in this document represents components of the legal health record. It is not the complete legal health record.[facility]
--- OUTSIDE RECORDS SUMMARY | 2025-02-07 20:32 | XMS_ITS | Encounter Summary ---
Author Organization [facility] Address [address] [place] [address] Phone Care Team Providers Care Technical Engineer Name Role Phone Bobo Poe MD Primary Care Provider + Encounter Details Date Type Department Care Team (Late st Contact Info) Description 04/24/2021 Procedure Pass OR Admitting Dept - Virtual Department [address] [place] [address] Social History Tobacco Use Types Packs/Day Years Used Date Smoking Tobacco: Former Cigarettes 0.3 10 1 988 - 1998 Smokeless Tobacco: Never Alcohol Use Standard Drinks/Week Comments Yes 1 (1 standard drink = 0.6 oz pur e alcohol) once a week Comments No Sex and Gender Information Value Date Recorded Sex Assigned at Female 11/15/2018 6:23 PM EDT Legal Sex Female 8:01 PM EST Gender Identity Female 11/15/2018 6:23 PM EDT Sexual Orientation Not on file documented as of this encounter Plan of Treatment Not on file documented as of this encounter Visit Diagnoses Not on filedocumented in this encounter Care Teams Technical Engineer Relationship Specialty Start Date End Date Bobo Poe MD [address] [place] [phone] PCP - General Internal Medicine 08/13/17 documented as of this encounter Additional Source Comments The information contained in this document represents components of the legal health record. It is not the complete legal health record.[facility]
--- OUTSIDE RECORDS SUMMARY | 2025-02-07 20:32 | XMS_ITS | Encounter Summary ---
Author Organization [facility] Address [address] [facility] [address] [place] [address] Phone Care Team Providers Care Icing And Glaze Maker Name Role Phone Bobo Poe MD Primary Care Provider + Encounter Details Date Type Department Care Team (Late st Contact Info) Description 04/10/2021 Ancillary Orders [facility],Outside Imaging [address] [place] [address] System, Provider Not In, [place] [address] Social History Tobacco Use Types Packs/Day Years [...] as of this encounter Results * XR Lower Extremity Outside (No Interpretation) (03/25/2021 12:00 AM EST) Narrative SYSTEMGENERATED, DOCUMENTATION - 04/10/2021 9:48 AM EST This study is for PACS storage only and not for interpretation. us Provider Not In System PhD IMG OUTSIDE IMAGING W /OUT INTERPRETATION Final Result documented in this encounter Visit Diagnoses Not on filedocumented in this encounter Care Teams Icing And Glaze Maker Relationship Specialty Start Date End Date Bobo Poe MD [address] [facility] [address] [place] [phone] PCP - General Internal Medicine 08/13/17 documented as of this encounter Additional Source Comments The information contained in this document represents components of the legal health record. It is not the complete legal health record.[facility]
--- OUTSIDE RECORDS SUMMARY | 2025-02-07 20:32 | XMS_ITS | Encounter Summary ---
Author Organization [facility] Address [address] [facility] [address] [place] [phone] Phone Care Team Providers Care A Auxiliary Name Role Phone Bobo Poe MD Primary Care Provider + Encounter Details Date Type Department Care Team (Late st Contact Info) Description 03/19/2021 Ancillary Orders [facility],Outside Imaging [address] [place] [address] System, Provider Not In, [place] [address] Social History Tobacco Use Types Packs/Day Years [...] * XR Lower Extremity Outside (No Interpretation) (10/29/2020 12:00 AM EDT) Narrative SYSTEMGENERATED, DOCUMENTATION - 03/19/2021 5:20 PM EST This study is for PACS storage only and not for interpretation. us Provider Not In System PhD IMG OUTSIDE IMAGING W /OUT INTERPRETATION Final Result documented in this encounter Visit Diagnoses Not on filedocumented in this encounter Additional Health Concerns Infection Onset Date Last Indicated Resolved Time COVID-19 03/08/2021 03/08/2021 03/29/2021 1:24 AM EST documented as of this encounter Care Teams A Auxiliary Relationship Specialty Start Date End Date Bobo Poe MD [address] [facility] 1 [place] [phone] PCP - General Internal Medicine 08/13/17 documented as of this encounter Additional Source Comments The information contained in this document represents components of the legal health record. It is not the complete legal health record.[facility]
--- OUTSIDE RECORDS SUMMARY | 2025-02-07 20:32 | XMS_ITS | Encounter Summary ---
Author Organization [facility] Address [address] [facility] [address] [place] [address] Phone Care Team Providers Care Pharmacognosy Teacher Name Role Phone Bobo Poe MD Primary Care Provider + Encounter Details Date Type Department Care Team ([facility] st Contact Info) Description 03/18/2023 Prep for Surgery [facility]ics & Sports Medicine [address] [place] [address] Radha Montes MD [address] [place] [address] Orthopedics & Sports Medicine, [facility] [place] [address] [email or web address] Social History Tobacco Use Types Packs/Day Years [...] on filedocumented in this encounter Care Teams Pharmacognosy Teacher Relationship Specialty Start Date End Date Bobo Poe MD [address] [facility] 1 [place] [phone] PCP - General Internal Medicine 08/13/17 documented as of this encounter Additional Source Comments The information contained in this document represents components of the legal health record. It is not the complete legal health record.[facility]
--- OUTSIDE RECORDS SUMMARY | 2025-02-07 20:32 | XMS_ITS | Clinical Summary ---
Author Organization [facility] Address [address] [facility] 7[address] [place] [address] Care Team Providers Care Pc Network Technician Name Role Phone Unavailable Primary Care Provider Unavailabl e Social History Tobacco Use Types Packs/Day Years Used Date Smoking Tobacco: Never Assessed Comments Unknown Sex and Gender Information Value Date Recorded Sex Assigned at Not on file Legal Sex Female 8:37 PM EDT Gender Identity Not on file Sexual Orientation Not on file Plan of Treatment Health Maintenance Due Date Last Done Comments CT Colonography 1966 Colonoscopy 1966 Colorectal Cancer Screening 1966 Depression Screening 1966 FIT DNA/Cologuard 1966 FIT 1966 FOBT 1966 Sigmoidoscopy 1966 Disability Screening 1966 Alcohol/Substance Use Screening 1978 Tobacco Screening 1978 DTaP/Tdap/Td Vaccines (1 - Tdap) 1985 Hepatitis B Vaccines (1 of 3 - 19+ 3-dose series) 1985 Pap Smear 06/26/1987 Cervical Cancer Screening 1996 HPV/Cotest 1996 Mammogram 2006 Pneumococcal Vaccine: 50+ Ye ars (1 of 1 - PCV) 2016 Zoster Vaccines (1 of 2) 2016 COVID-19 Vaccine ( - 2024-2 6 season) 2024 Influenza Vaccine (#1) 2024 RSV Patients and Pa tients Aged 60 years or older (1 - 1-dose 75+ series) 2041 HIB Vaccines Aged Out No longer eligi ble based on patient's age to complete this topic HPV Vaccines Aged Out No longer eligi ble based on patient's age to complete this topic Hepatitis A Vaccines Aged Out No long er eligible based on patient's age to complete this topic IPV Vaccines Aged Out No longer eligi ble based on patient's age to complete this topic Meningococcal B Vaccine Aged Out No l onger eligible based on patient's age to complete this topic Meningococcal Vaccine Aged Out No nena falguni eligible based on patient's age to complete this topic RSV under 20 months Aged Out No longe r eligible based on patient's age to complete this topic Rotavirus Vaccines Aged Out No longer eligible based on patient's age to complete this topic
--- OUTSIDE RECORDS SUMMARY | 2025-02-07 20:32 | XMS_ITS | Clinical Summary ---
Author Organization [facility] Address [address] [place] [address] Care Team Providers Care Site Acquisition Manager Name Role Phone Bobo Poe MD Primary Care Provider [phone] Surgical History Surgery Date Site/Laterality Comments TOTAL KNEE ARTHROPLASTY PROCEDURE: LA ARTHRP KNE CONDYLE&PLATU MEDIAL&LAT COMPARTMENTS OTHER SURGICAL HISTORY PROCEDURE: HISTORICAL MELANOMA OTHER SURGICAL HISTORY PROCEDURE: LA CAPSULORRHAPHY ANTERIOR W/LABRAL REPAIR OTHER SURGICAL HISTORY PROCEDURE: LA CAPSUL MIDFOOT W/PST TALOTIBL CAPSUL&TDN LNGTH Medical History Medical History Date Comments History of basal cell carcinoma 02/11/2018 DX:History of basal cell carcinoma Migraines DX:Migraines Family History Medical History Relation Name Comments Heart failure Father Alcohol abuse Maternal Grandfather Heart failure Maternal Grandmother Heart failure Paternal Grandfather Dementia Paternal Grandmother Relation Name Status Comments Brother Alive Father Maternal Grandfather Maternal Grandmother Mother Alive Paternal Grandfather Paternal Grandmother Sister Alive Social History Tobacco Use Types Packs/Day Years Used Date Smoking Tobacco: Former Smokeless Tobacco: Former Alcohol Use Standard Drinks/Week Comments Yes 0 (1 standard drink = 0.6 oz pur e alcohol) Comments Unknown Sex and Gender Information Value Date Recorded Sex Assigned at Not on file Legal Sex Female 12:45 AM EST Gender Identity Not on file Sexual Orientation Not on file Last Filed Vital Signs Vital Sign Reading Time Taken Comments Blood Pressure 126/86 08/14/2023 8:37 AM EDT Pulse 70 08/14/2023 8:37 AM EDT Temperature - - Respiratory Rate - - Oxygen Saturation - - Inhaled Oxygen Concentration - - Weight 84.9 kg (187 lb 3.2 oz) 08/14/2023 8:37 A M EDT Height 172.7 cm (5' 8 ) 08/08/2021 9:07 AM EDT Body Mass Index 28.46 08/08/2021 9:07 AM EDT Plan of Treatment Health Maintenance Due Date Last Done Comments Colorectal Cancer Screening: Colonoscopy 1966 DTaP,Tdap,and Td Vaccines (1 - Tdap) 1985 Hepatitis B Vaccines (1 of 3 - 19+ 3-dose series) 1985 Pneumococcal Vaccine: 50+ Ye ars (1 of 1 - PCV) 2016 Zoster Vaccines (1 of 2) 2016 Breast Cancer Screening 01/23/2022 01/24/2020 HIV Screening 02/02/2022 Hepatitis C Screening 02/02/2022 Social Influencers of Health Screening 02/02/2022 Cervical Cancer Screening: P ap Smear 12/27/2022 12/28/2019 Depression Screening 03/02/2024 COVID-19 Vaccine (1 - 2024-2 6 season) 2024 Influenza Vaccine (#1) 2024 RSV Immunization Adult Patie nts (1 - 1-dose 75+ series) 2041 HIB [...] on patient's age to complete this topic MMR Vaccines Aged Out No longer eligi ble based on patient's age to complete this topic Meningococcal ACWY Vaccine Aged Out N o longer eligible based on patient's age to complete this topic Meningococcal B Vaccine Aged Out No l onger eligible based on patient's age to complete this topic RSV Immunization Patients Un cris 20 months Aged Out No longer eligible b ased on patient's age to complete this topic Varicella Vaccines Aged Out No longer eligible based on patient's age to complete this topic Procedures Procedure Name Priority Date/Time Associated Diagnosis Comments SCR MAMMO BI INCL CAD Routine 01/24/2020 8:01 AM EST Encounter for gynecological examination (general) (routine) without abnormal findings PAP SMEAR Routine 12/28/2019 from Last 3 Months or Most Recently Relevant to Health Maintenance Results * SCR MAMMO BI INCL CAD (01/24/2020 8:01 AM EST) Anatomical Region Laterality Modality Radiographic Aparna ging 12/28/2019 9:43 AM EDT Narrative 02/01/2020 5:03 PM EST This is a summary report. The complete report is available in the patient's medical record. If you cannot access the medical record, please contact the sending organization for a detailed fax or copy. BILATERAL 2D DIGITAL SCREENING MAMMOGRAM History: Routine screening. No current breast complaints. Comparison: Multiple priors dating back to 06/20/2008 Technique: Bilateral full-field digital mammography was performed using standard CC and MLO projections, left breast exaggerated cc CAD was used to evaluate this mammogram. Findings: Density: There are scattered areas of fibroglandular density-B RIGHT: No suspicious masses, groups of microcalcification or areas of architectural distortion identified. Stable typically benign parenchymal asymmetries LEFT: No suspicious masses, groups of microcalcifications or areas of architectural distortion identified. Stable typically benign parenchymal asymmetries IMPRESSION: : 1. No mammographic evidence of malignancy. BI-RADS Category 2 benign findings Recommendation: Routine annual screening mammography is recommended Procedure Note Lewis Guan MD - 02/18/2022 This is a summary report. The complete report is available in thepatient's medical record. If you cannot access the medical record, pleasecontact the sending organization for a detailed fax or copy. BILATERAL 2D DIGITAL SCREENING MAMMOGRAM History: Routine screening. No current breast complaints. Comparison: Multiple priors dating back to 06/20/2008 Technique: Bilateral full-field digital mammography was performed usingstandard CC and MLO projections, left breast exaggerated cc CAD was used to evaluate this mammogram. Findings: Density: There are scattered areas of fibroglandular density-B RIGHT: No suspicious masses, groups of microcalcification or areas ofarchitectural distortion identified. Stable typically benign parenchymalasymmetries LEFT: No suspicious masses, groups of microcalcifications or areas ofarchitectural distortion identified. Stable typically benign parenchymalasymmetries IMPRESSION: : 1. No mammographic evidence of malignancy. BI-RADS Category 2 benign findings Recommendation: Routine annual screening mammography is recommended Yudith SARMIENTO IMG XR PROCEDURES Final Result * Pap smear (12/28/2019) 12/28/2019 Narrative HISTORICAL TESTING LAB RESULTING AGENCY - 01/11/2020 12:35 PM EST [id number] THINPREP PAP AND CELL BLOCK: NEGATIVE FOR SQUAMOUS INTRAEPITHELIAL LESION AND MALIGNANCY . CLUE CELLS PRESENT. HYPERKERATOSIS. ELVA TRISTAN , ADRI(ASCP) (CASE SCREENED 01 03 2020) KATHERINE WALKER M.D. , PATHOLOGIST (CASE ELECTRONICALLY SIGNED 01 09 2020) RESULT OF APTIMA HIGH RISK HPV ASSAY: HIGH RISK HPV: NEGATIVE (SEROTYPES 16,18,31,33,35,39,45,51,52,56,58,59,66,68) COMPLETED ON 2019-12-30 ADEQUACY: SATISFACTORY ENDOCERVICAL/TRANSFORMATION ZONE COMPONENT ABSENT. SOURCE: THINPREP PAP HPV ANY DX: REFLEX 16 AND 18, CERVICAL, IMAGED CLINICAL INFORMATION: HPV ANY DIAGNOSIS. Z12.4 12/30/19 Yudith Cook CNM LAB CYTOLOGY ORDERABLES Final Result HISTORICAL TESTING LAB RESULTING AGENCY from Last 3 Months or Most Recently Relevant to Health Maintenance Care Teams Site Acquisition Manager Relationship Specialty Start Date End Date Bobo Poe MD [address] [place] [address] [address] [place], [place] PCP - General Internal Medicine 09/21/17
== END 2025-02-07 15:21 | disposition home or self-care (01) ==
LOC: HO.PMC 14:38
PROVIDERS: PCP Internal Medicine; Visit Provider Nurse Practitioner Family
DX: M53.3 Sacrococcygeal disorders, not elsewhere classified (principal); M25.551 Pain in right hip; M47.817 Spondylosis without myelopathy or radiculopathy, lumbosacral region; M51.369 Other intervertebral disc degeneration, lumbar region without mention of lumbar back pain or lower extremity pain; M54.16 Radiculopathy, lumbar region; M70.61 Trochanteric bursitis, right hip
CPT/HCPCS: 99214

== ENCOUNTER 2025-02-07 14:38 | Outpatient (REF) | payer MEDICAID, SELFPAY ==
--- NOTE | ~2025-02-07 | XR_ITS ---
EXAMINATION: XR HIP, RIGHT CLINICAL INFORMATION: M53.3 - Sacrococcygeal disorders, not elsewhere classified COMPARISON: None available. TECHNIQUE: Two views of the right hip. Pelvis 1 view FINDINGS: Right hip: No acute fracture or dislocation. Alignment is anatomic. Hip joint space is maintained. No suspicious bony lesion. Pelvis: Left hip joint space is maintained. Symphysis pubis intact. There is bowel loops projected over the pelvis, containing prominent stool and increased density suggestive of oral contrast material within the bowel loops. This is obscuring the underlying pelvis, sacrum and coccyx. There is a prominent round heterogeneous focus projected over the lower pelvis, probably reflecting a ball of stool. IUD and surgical clip projected projected of the pelvis. XR/XR hip RT w PEL1V IMPRESSION: Right hip: No acute findings. Bowel loops containing stool and barium within the bowel loops obscuring the pelvis, limiting evaluation. Electronically signed by: Juan Francisco Oglesby MD 02/08/2025 09:53 AM EST
== END 2025-02-07 14:39 | disposition home or self-care (01) ==
LOC: HO.XRAY 14:38
PROVIDERS: PCP Internal Medicine; Visit Provider Nurse Practitioner Family
DX: M47.817 Spondylosis without myelopathy or radiculopathy, lumbosacral region (principal); M51.16 Intervertebral disc disorders with radiculopathy, lumbar region; M70.61 Trochanteric bursitis, right hip; M53.3 Sacrococcygeal disorders, not elsewhere classified
CPT/HCPCS: 73502; 99212

== ENCOUNTER → 2025-02-07 15:41 | Outpatient (BNV) | payer MEDICAID, SELFPAY | PROVIDERS: PCP Internal Medicine; Visit Provider Radiology Diagnostic Ultrasound | DX: M53.3 Sacrococcygeal disorders, not elsewhere classified (principal) | CPT/HCPCS: 73502 ==